=== PATIENT | male | born 2000 | race Caucasian/White ===

== ENCOUNTER 2023-07-14 14:42 | Emergency (ER) | payer OTHER ==
[~2023-07-14] VITALS: Ht 162.6 cm; Wt 58.2 kg
[2023-07-14 15:04] VITALS: BP 143/66; PULSE 68; RESP 18; TEMP 97; O2SAT 100
[2023-07-14] MEDS ORDERED: AMOX500C2 PO (16:03)
[2023-07-14] MEDS: erythromycin ophthalmic ointment 1gm tube EACHEYE ONE (16:29)
[2023-07-14] MEDS: amoxicillin 250mg capsule PO ONE (16:29)
== END 2023-07-14 16:42 | disposition home or self-care (01) ==
LOC: ER 14:43
DX: H10.89 Other conjunctivitis (principal); H66.91 Otitis media, unspecified, right ear; Z79.2 Long term (current) use of antibiotics
CPT/HCPCS: 99283